=== PATIENT | female | born 1955 | race Caucasian/White ===

== ENCOUNTER → 2024-03-10 | Day surgery (SDC) | payer MEDICARE | LOC: MAMMO 06:39 | PROVIDERS: ATTEND Family Medicine | PROC: 0HB5XZX Excision of Chest Skin, External Approach, Diagnostic (ICD-10-PCS; principal; 2024-03-10) | DX: C50.811 Malignant neoplasm of overlapping sites of right female breast (principal); N60.91 Unspecified benign mammary dysplasia of right breast; N60.21 Fibroadenosis of right breast; R92.8 Other abnormal and inconclusive findings on diagnostic imaging of breast | CPT/HCPCS: 19081; A4648; 88305; 88342; 88361 ==